=== PATIENT | male | born 1935 | race Caucasian/White ===

== ENCOUNTER 2018-04-09 15:18 | Observation (INO) | payer MEDICARE, OTHER ==
[2018-04-09 16:02] LABS: ADD MAN DIFF? NO
[2018-04-09 16:07] LABS: BASOPHILS % 0.3 % (0.0-2.0); HEMOGLOBIN 12.3 g/dl (14.0-18.0); LYMPHOCYTES # 0.8 10^3/ul (0.8-2.9); LYMPHOCYTES % 7.9 % (15.0-51.0); MEAN CORPUSCULAR HEMOGLOBIN 31.9 pg (29.0-33.0); MEAN CORPUSCULAR HGB CONC 35.1 g/dl (32.0-37.0); MEAN CORPUSCULAR VOLUME 90.9 fl (82.0-101.0); MEAN PLATELET VOLUME 9.9 fl (7.4-10.4); MONOCYTE # 0.5 10^3/ul (0.3-0.9); MONOCYTES % 5.4 % (0.0-11.0); NEUTROPHIL # 8.3 10^3/ul (1.6-7.5); NEUTROPHILS % 85.9 % (39.0-77.0); PLATELET COUNT 276 10^3/UL (140-415); RED BLOOD COUNT 3.85 10^6/ul (4.70-6.10); RED CELL DISTRIBUTION WIDTH 12.7 % (11.5-14.5)
[2018-04-09 16:07] LABS: WHITE BLOOD COUNT 9.7 10^3/ul (4.8-10.8)
[2018-04-09] MEDS: ONDANSETRON 4 MG INJ IV (16:12)
[2018-04-09] MEDS: SOD CHLORIDE 0.9% 1,000 ML IV ×2 (16:12→18:00)
[2018-04-09] MEDS: ASPIRIN 325 MG TAB PO ×3 (16:20→17:18)
[2018-04-09] MEDS: morphine 2 MG INJ IV (16:22)
[2018-04-09 16:25] LABS: ALANINE AMINOTRANSFERASE 25 IU/L (13-69); ALBUMIN 4.6 g/dl (3.3-4.9); ALBUMIN/GLOBULIN RATIO 1.48; ALKALINE PHOSPHATASE 47 IU/L (42-121); AMYLASE 64 U/L (11-123); ANION GAP 17 (8-16); ASPARTATE AMINO TRANSFERASE 27 IU/L (15-46); BILIRUBIN,INDIRECT 0.7 mg/dl (0-1.1); BILIRUBIN,TOTAL 0.7 mg/dl (0.2-1.3); BLOOD UREA NITROGEN 9 mg/dl (7-20); CALCIUM 9.4 mg/dl (8.4-10.2); CARBON DIOXIDE 29 mmol/L (21-31); CHLORIDE 92 mmol/L (97-110); CREATININE 0.66 mg/dl (0.61-1.24); GLUCOSE 157 mg/dl (70-220); LIPASE 159 U/L (23-300); POTASSIUM 4.4 mmol/L (3.5-5.1); SODIUM 134 mmol/L (135-144); TOTAL PROTEIN 7.7 g/dl (6.1-8.1)
[2018-04-09 16:26] LABS: INR 1.04; PROTIME 13.7 Sec (11.9-14.9); PT RATIO 1.1
[2018-04-09 16:27] LABS: PARTIAL THROMBOPLASTIN TIME 27.5 Sec (25.0-35.0)
[2018-04-09 16:36] LABS: TROPONIN-I < 0.010 ng/ml (0.000-0.120)
[2018-04-09 16:56] LABS: ADD UMIC YES; UR ASCORBIC ACID NEGATIVE (NEGATIVE); UR BILIRUBIN (Dip) NEGATIVE (NEGATIVE); UR BLOOD (Dip) 1+ mg/dL (NEGATIVE); UR CLARITY CLEAR (CLEAR); UR COLOR YELLOW (YELLOW); UR GLUCOSE (Dip) 1+ mg/dL (NEGATIVE); UR KETONES (Dip) TRACE mg/dL (NEGATIVE); UR LEUKOCYTE ESTERASE (Dip) NEGATIVE Leu/ul (NEGATIVE); UR NITRITE (Dip) NEGATIVE (NEGATIVE); UR RBC 1 /HPF (0-5); UR SPECIFIC GRAVITY (Dip) 1.009 (1.003-1.030); UR TOTAL PROTEIN (Dip) NEGATIVE (NEGATIVE); UR UROBILINOGEN (Dip) NEGATIVE (NEGATIVE); UR WBC 1 /HPF (0-5)
[2018-04-09] MEDS ORDERED: DOCUSATE SODIUM 100 MG CAP PO (17:30)
[2018-04-09] MEDS ORDERED: BISACODYL (EC) 5 MG TAB PO (17:30)
[2018-04-09] MEDS ORDERED: ACETAMINOPHEN 325 MG TAB PO (17:30)
[2018-04-09] MEDS ORDERED: MAGNESIUM HYDROXIDE 30ML CUP PO (17:30)
[2018-04-09] MEDS ORDERED: morphine 2 MG INJ IV (17:30)
[2018-04-09] MEDS ORDERED: ONDANSETRON 4 MG INJ IV (17:30)
[2018-04-09] MEDS ORDERED: NACL 0.9% 3 ML SYG IV (17:30)
[2018-04-09] MEDS ORDERED: NITROGLYCERIN (SL) 0.4 MG TAB SL (17:30)
[2018-04-09] MEDS ORDERED: LABETALOL HCL 20MG INJ IV (18:00)
[2018-04-09] MEDS: INSULIN ASPART [NOVOLOG] 3 ML PEN SC ×3 (20:15→21:00)
[2018-04-09] MEDS: CREON (12k-38k-60k) 1 CAP PO (20:16)
[2018-04-09] MEDS: ATORVASTATIN 10 MG TAB PO (20:17)
[2018-04-09] MEDS: BENAZEPRIL 10 MG TAB PO (20:18)
[2018-04-09 20:46] LABS: TROPONIN-I < 0.010 ng/ml (0.000-0.120)
[2018-04-09] MEDS: INSULIN GLARGINE [LANTus] (100 UNITS/ML) SYG SC (20:59)
[2018-04-09] MEDS: HEPARIN 5,000 UNIT/0.5 ML VIAL SC (23:03)
[2018-04-10 01:37] LABS: TROPONIN-I < 0.010 ng/ml (0.000-0.120)
[2018-04-10] MEDS: ACCU-CHEK XX (02:44)
[2018-04-10] MEDS: PANTOPRAZOLE 40 MG INJ IV (06:29)
[2018-04-10] MEDS: HEPARIN 5,000 UNIT/0.5 ML VIAL SC ×3 (06:39→22:10)
[2018-04-10 06:52] LABS: ADD MAN DIFF? NO
[2018-04-10] MEDS: LEVOTHYROXINE 25 MCG TAB PO (06:58)
[2018-04-10 07:02] LABS: WHITE BLOOD COUNT 6.8 10^3/ul (4.8-10.8)
[2018-04-10 07:02] LABS: BASOPHILS % 0.4 % (0.0-2.0); EOSINOPHILS # 0.1 10^3/ul (0.0-0.5); HEMATOCRIT 31.8 % (42.0-52.0); HEMOGLOBIN 11.2 g/dl (14.0-18.0); LYMPHOCYTES # 1.2 10^3/ul (0.8-2.9); LYMPHOCYTES % 17.7 % (15.0-51.0); MEAN CORPUSCULAR HEMOGLOBIN 33.1 pg (29.0-33.0); MEAN CORPUSCULAR HGB CONC 35.2 g/dl (32.0-37.0); MEAN CORPUSCULAR VOLUME 94.1 fl (82.0-101.0); MEAN PLATELET VOLUME 9.8 fl (7.4-10.4); MONOCYTE # 0.8 10^3/ul (0.3-0.9); MONOCYTES % 11.3 % (0.0-11.0); NEUTROPHIL # 4.7 10^3/ul (1.6-7.5); NEUTROPHILS % 69.2 % (39.0-77.0); PLATELET COUNT 255 10^3/UL (140-415); RED BLOOD COUNT 3.38 10^6/ul (4.70-6.10); RED CELL DISTRIBUTION WIDTH 12.8 % (11.5-14.5)
[2018-04-10 07:27] LABS: HEMOGLOBIN A1C 7.2 % (0-5.9)
[2018-04-10 07:30] LABS: ALANINE AMINOTRANSFERASE 24 IU/L (13-69); ALBUMIN 3.8 g/dl (3.3-4.9); ALKALINE PHOSPHATASE 34 IU/L (42-121); ANION GAP 15 (8-16); ASPARTATE AMINO TRANSFERASE 22 IU/L (15-46); BILIRUBIN,INDIRECT 0.3 mg/dl (0-1.1); BILIRUBIN,TOTAL 0.3 mg/dl (0.2-1.3); BLOOD UREA NITROGEN 13 mg/dl (7-20); CALCIUM 8.7 mg/dl (8.4-10.2); CARBON DIOXIDE 28 mmol/L (21-31); CHLORIDE 98 mmol/L (97-110); CREATININE 0.74 mg/dl (0.61-1.24); GLUCOSE 78 mg/dl (70-220); HDL CHOLESTEROL 28 mg/dl (31-75); MAGNESIUM 1.4 mg/dl (1.7-2.5); POTASSIUM 3.6 mmol/L (3.5-5.1); SODIUM 137 mmol/L (135-144); TOTAL PROTEIN 6.5 g/dl (6.1-8.1); TRIGLYCERIDES 78 mg/dl (0-149)
[2018-04-10 07:38] LABS: CHOLESTEROL < 50 mg/dl (100-200)
[2018-04-10 07:39] LABS: TROPONIN-I < 0.010 ng/ml (0.000-0.120)
[2018-04-10] MEDS: INSULIN ASPART [NOVOLOG] 3 ML PEN SC ×7 (07:55→21:00)
[2018-04-10] MEDS: CHOLECALCIFEROL 1,000 UNIT TAB PO (08:34)
[2018-04-10] MEDS: CLOPIDOGREL 75 MG TAB PO (08:34)
[2018-04-10] MEDS: CREON (12k-38k-60k) 1 CAP PO ×3 (08:34→18:01)
[2018-04-10] MEDS: LOSARTAN 25 MG TAB PO (08:34)
[2018-04-10] MEDS: ASPIRIN 81 MG TAB PO (08:34)
[2018-04-10] MEDS: BENAZEPRIL 10 MG TAB PO (08:35)
[2018-04-10] MEDS ORDERED: LOPERAMIDE HCL 1 MG/5 ML LIQUID (10 ML UD CUP) GTB (13:00)
[2018-04-10 13:08] LABS: FREE T4 (FREE THYROXINE) 0.77 ng/dl (0.85-1.93)
[2018-04-10] MEDS: SOD CHLORIDE 0.9% 1,000 ML IV (13:36)
[2018-04-10] MEDS: LOPERAMIDE HCL 1 MG/5 ML LIQUID (10 ML UD CUP) GTB (14:49)
[2018-04-10] MEDS ORDERED: GLUCAGON 1 MG INJ IM (15:30)
[2018-04-10] MEDS ORDERED: DEXTROSE 50% 50 ML SYRINGE IV ×2 (15:30)
[2018-04-10] MEDS ORDERED: GLUCOSE GEL 15 GRAM TUBE BUCCAL (15:30)
[2018-04-10] MEDS ORDERED: GLUCOSE GEL 15 GRAM TUBE PO ×2 (15:30)
[2018-04-10] MEDS: ACETAMINOPHEN 325 MG TAB PO (17:18)
[2018-04-10] MEDS ORDERED: morphine LIQ (10 MG/5 ML) CUP PO (17:30)
[2018-04-10] MEDS: LOSARTAN 50 MG TAB PO (21:04)
[2018-04-10] MEDS: INSULIN GLARGINE [LANTus] (100 UNITS/ML) SYG SC (22:09)
[2018-04-11] MEDS: HYDROCODONE/APAP (5/325) TAB PO ×2 (01:46→02:48)
[2018-04-11] MEDS: ACCU-CHEK XX (01:53)
[2018-04-11] MEDS: LEVOTHYROXINE 75 MCG TAB PO (06:26)
[2018-04-11] MEDS: PANTOPRAZOLE (EC) 40 MG TAB PO (06:26)
[2018-04-11] MEDS: HEPARIN 5,000 UNIT/0.5 ML VIAL SC ×2 (06:39→13:56)
[2018-04-11 07:23] LABS: ADD MAN DIFF? NO
[2018-04-11 07:28] LABS: BASOPHILS % 0.5 % (0.0-2.0); EOSINOPHILS % 0.7 % (0.0-7.0); HEMATOCRIT 31.6 % (42.0-52.0); HEMOGLOBIN 11.3 g/dl (14.0-18.0); LYMPHOCYTES # 1.5 10^3/ul (0.8-2.9); LYMPHOCYTES % 25.5 % (15.0-51.0); MEAN CORPUSCULAR HEMOGLOBIN 33.4 pg (29.0-33.0); MEAN CORPUSCULAR HGB CONC 35.8 g/dl (32.0-37.0); MEAN CORPUSCULAR VOLUME 93.5 fl (82.0-101.0); MEAN PLATELET VOLUME 9.8 fl (7.4-10.4); MONOCYTE # 0.7 10^3/ul (0.3-0.9); MONOCYTES % 12.7 % (0.0-11.0); NEUTROPHIL # 3.4 10^3/ul (1.6-7.5); NEUTROPHILS % 60.1 % (39.0-77.0); PLATELET COUNT 252 10^3/UL (140-415); RED BLOOD COUNT 3.38 10^6/ul (4.70-6.10); RED CELL DISTRIBUTION WIDTH 12.8 % (11.5-14.5)
[2018-04-11 07:28] LABS: WHITE BLOOD COUNT 5.7 10^3/ul (4.8-10.8)
[2018-04-11 07:47] LABS: ANION GAP 13 (8-16); BLOOD UREA NITROGEN 11 mg/dl (7-20); CALCIUM 8.6 mg/dl (8.4-10.2); CARBON DIOXIDE 29 mmol/L (21-31); CHLORIDE 99 mmol/L (97-110); CREATININE 0.66 mg/dl (0.61-1.24); GLUCOSE 87 mg/dl (70-220); MAGNESIUM 1.4 mg/dl (1.7-2.5); PHOSPHORUS 3.9 mg/dl (2.5-4.9); POTASSIUM 3.7 mmol/L (3.5-5.1); SODIUM 137 mmol/L (135-144)
[2018-04-11] MEDS: INSULIN ASPART [NOVOLOG] 3 ML PEN SC ×4 (07:55→13:34)
[2018-04-11] MEDS: CREON (12k-38k-60k) 1 CAP PO ×2 (09:03→13:09)
[2018-04-11] MEDS: CHOLECALCIFEROL 1,000 UNIT TAB PO (09:04)
[2018-04-11] MEDS: CLOPIDOGREL 75 MG TAB PO (09:04)
[2018-04-11] MEDS: ASPIRIN 81 MG TAB PO (09:04)
[2018-04-11] MEDS: LOSARTAN 50 MG TAB PO (09:05)
[2018-04-11] MEDS: SOD CHLORIDE 0.9% 1,000 ML IV (09:29)
[2018-04-11] MEDS ORDERED: ONDANSETRON 4 MG INJ IV (11:00)
[2018-04-11] MEDS: MAGNESIUM OXIDE 400 MG TAB PO (13:09)
== END 2018-04-11 14:15 | disposition home health service (06) ==
LOC: E/R 15:18 → TEL 17:07
DX: R07.9 Chest pain, unspecified (principal); E11.9 Type 2 diabetes mellitus without complications; E03.9 Hypothyroidism, unspecified; I10 Essential (primary) hypertension; R19.7 Diarrhea, unspecified; R11.2 Nausea with vomiting, unspecified
CPT/HCPCS: 71045; 80048; 80053; 80061; 81001; 82150; 82962; 83036; 83690; 83735; 84100; 84439; 84443; 84484; 85025; 85610; 85730; 87086; 93005; 93306; 96374; 97116; 97162; 97530; 99285-25; G0378

== ENCOUNTER 2018-04-21 12:19 | Emergency (ER) | payer MEDICARE, OTHER ==
[2018-04-21] MEDS: SOD CHLORIDE 0.9% 1,000 ML IV (15:19)
[2018-04-21] MEDS: ONDANSETRON 4 MG INJ IV (15:19)
[2018-04-21 15:20] LABS: ADD UMIC NO; UR ASCORBIC ACID NEGATIVE (NEGATIVE); UR BILIRUBIN (Dip) NEGATIVE (NEGATIVE); UR BLOOD (Dip) NEGATIVE (NEGATIVE); UR CLARITY CLEAR (CLEAR); UR COLOR AMBER (YELLOW); UR GLUCOSE (Dip) NEGATIVE (NEGATIVE); UR KETONES (Dip) NEGATIVE (NEGATIVE); UR LEUKOCYTE ESTERASE (Dip) NEGATIVE Leu/ul (NEGATIVE); UR NITRITE (Dip) NEGATIVE (NEGATIVE); UR SPECIFIC GRAVITY (Dip) 1.014 (1.003-1.030); UR TOTAL PROTEIN (Dip) NEGATIVE (NEGATIVE); UR UROBILINOGEN (Dip) NEGATIVE (NEGATIVE)
[2018-04-21 15:24] LABS: ADD MAN DIFF? NO
[2018-04-21 15:27] LABS: BASOPHILS % 0.4 % (0.0-2.0); EOSINOPHILS % 0.2 % (0.0-7.0); HEMATOCRIT 37.2 % (42.0-52.0); HEMOGLOBIN 13.4 g/dl (14.0-18.0); LYMPHOCYTES # 1.5 10^3/ul (0.8-2.9); MEAN CORPUSCULAR HEMOGLOBIN 33.1 pg (29.0-33.0); MEAN CORPUSCULAR VOLUME 91.9 fl (82.0-101.0); MEAN PLATELET VOLUME 9.6 fl (7.4-10.4); MONOCYTE # 1.1 10^3/ul (0.3-0.9); MONOCYTES % 9.9 % (0.0-11.0); NEUTROPHIL # 8.2 10^3/ul (1.6-7.5); NEUTROPHILS % 74.9 % (39.0-77.0); PLATELET COUNT 232 10^3/UL (140-415); RED BLOOD COUNT 4.05 10^6/ul (4.70-6.10); RED CELL DISTRIBUTION WIDTH 12.6 % (11.5-14.5)
[2018-04-21 15:27] LABS: WHITE BLOOD COUNT 10.9 10^3/ul (4.8-10.8)
[2018-04-21 15:48] LABS: ALANINE AMINOTRANSFERASE 20 IU/L (13-69); ALBUMIN 4.7 g/dl (3.3-4.9); ALBUMIN/GLOBULIN RATIO 1.38; ALKALINE PHOSPHATASE 47 IU/L (42-121); ANION GAP 18 (8-16); ASPARTATE AMINO TRANSFERASE 26 IU/L (15-46); BILIRUBIN,INDIRECT 0.6 mg/dl (0-1.1); BILIRUBIN,TOTAL 0.6 mg/dl (0.2-1.3); BLOOD UREA NITROGEN 14 mg/dl (7-20); CALCIUM 9.3 mg/dl (8.4-10.2); CARBON DIOXIDE 27 mmol/L (21-31); CHLORIDE 91 mmol/L (97-110); CREATININE 0.98 mg/dl (0.61-1.24); GLUCOSE 119 mg/dl (70-220); LIPASE 121 U/L (23-300); POTASSIUM 3.8 mmol/L (3.5-5.1); SODIUM 132 mmol/L (135-144); TOTAL PROTEIN 8.1 g/dl (6.1-8.1)
[2018-04-21 16:26] LABS: TROPONIN-I < 0.012 ng/ml (0.000-0.120)
== END 2018-04-21 17:33 | disposition home or self-care (01) ==
LOC: FTE 17:33
DX: R19.7 Diarrhea, unspecified (principal); R11.10 Vomiting, unspecified; I10 Essential (primary) hypertension; Z79.82 Long term (current) use of aspirin; Z79.84 Long term (current) use of oral hypoglycemic drugs
CPT/HCPCS: 36415; 80053; 81003; 83690; 84484; 85025; 87045; 87177; 93005; 96361; 96374; 99284-25